=== PATIENT | male | born 1990 | race Caucasian/White ===

== ENCOUNTER 2019-07-24 20:09 | Emergency (ER) | payer OTHER ==
[~2019-07-24] VITALS: Ht 182.9 cm; Wt 83.9 kg
[2019-07-24 20:10] VITALS: BP 141/76
[2019-07-24] MEDS ORDERED: levETIRAcetam 1,000mg/NS100ml 100 ML IVPB ONE (20:15)
--- NOTE | 2019-07-24 20:17 | Emergency Room Report ---
History of Present Illness General Chief Complaint: Seizure Source: Patient Present Illness HPI Disclaimer: Please note that this report is being documented using [employer] technology. This can lead to erroneous entry secondary to incorrect interpretation by the dictating instrument. HPI: 28-year-old male with a history of seizure disorder on Keppra presents for evaluation after generalized tonic-clonic seizure. Per EMS, family called after approximately 2 to 3-minute generalized tonic-clonic seizure without head injury. Patient takes Keppra but reportedly missed medications last night. EMS found him somnolent but arousable to painful stimuli. On arrival here he is awake though confused. He is moving all extremities and denies any complaints. Unable to provide any history of today's events. Vital signs have been stable. No medication given prior to arrival. Reportedly, the patient was drinking alcohol and using THC last night. PMH: Seizure disorder PSH: Unable to obtain from patient Allergies: Unable to obtain from patient Social Hx: Unable to obtain from patient Allergies: Coded Allergies: No Known Allergies (Unverified , 07/24/19) COVID-19 Screening Contact w/high risk pt: No Recent Travel to affected area: No Experienced COVID-19 symptoms?: No COVID-19 Testing performed [facility] [employer]: No Nursing Documentation-PMH Past Medical History: No History, Except For Hx Seizures: Yes Review of Systems All Other Systems: negative except mentioned in HPI Physical Exam Vital Signs Date Time Temp Pulse Resp B/P (MAP) Pulse Ox O2 Delivery O2 Flow Rate FiO2 07/24/19 20:04 97.3 90 18 141/76 (97) 98 Room Air General: Awake and alert, no acute distress HEENT: No external signs of trauma. EOMI. PERRLA. Anicteric sclera. No nystagmus. Cardiovascular: RRR. S1 and S2 normal. No murmur appreciated Resp: Normal work of breathing. No cough, wheezing or crackles appreciated Abdomen: Abdomen is soft, nondistended. Nontender Skin: Intact. No abrasions, laceration or rash over the exposed skin MSK: Normal tone and bulk. Moving all extremities. No obvious deformity. Neuro: Awake, answering questions appropriately. Amnestic to today's events but otherwise mentating appropriately Medical Decision Making Diagnostic Impression: Primary Impression: Seizure ER Course 28-year-old male with history of seizure disorder presents after generalized tonic-clonic seizure at home. Patient is awake though confused. Appears to be improving according to EMS report. Will obtain broad labs, give 1 g of Keppra as a loading dose as he reportedly missed his medications last night. Also send tox screen given the report of recent alcohol use. Reevaluation Time: 22:34 Last Vital Signs Date Time Temp Pulse Resp B/P (MAP) Pulse Ox O2 Delivery O2 Flow Rate FiO2 07/24/19 20:04 97.3 90 18 141/76 (97) 98 Room Air Reevaluation Impression Patient is now awake alert and conversant. He states that he did miss his thousand milligrams of Keppra last night but took his morning 500 today. He has not had a seizure since 2011. He follows with a neurologist and will contact them tomorrow. He was loaded with Keppra. Labs are unremarkable. He would like to be discharged home with follow-up on an outpatient basis. We discussed that he should not drive or operate any heavy machinery as this is the first seizure he said since 2011 and may require changes in his medications per his neurology team. He agrees with this treatment plan will be discharged home. His family is coming to pick him up. Disposition: HOME, SELF-CARE Condition: Stable Lopez Ly MD July 24, 2019 20:17
[2019-07-24 20:43] LABS: BASOPHILS % (AUTO) 2.2 % (0.0-2.0); EOSINOPHILS % (AUTO) 2.7 % (0.0-3.0); HEMATOCRIT 49.3 % (42.0-52.0); HEMOGLOBIN 15.5 G/DL (14.2-18.0); LYMPHOCYTES % (AUTO) 40.2 % (20.0-45.0); MEAN CORPUSCULAR VOLUME 97 FL (80-99); MONOCYTES % (AUTO) 8.3 % (1.0-10.0); NEUTROPHILS % (AUTO) 46.7 % (45.0-75.0); PLATELET COUNT 195 K/UL (150-450); RED BLOOD COUNT 5.11 M/UL (4.70-6.10); RED CELL DISTRIBUTION WIDTH 13.1 % (11.6-14.8); WHITE BLOOD COUNT 9.3 K/UL (4.8-10.8)
[2019-07-24 20:53] LABS: ANION GAP 16 mmol/L (5-15); BLOOD UREA NITROGEN 15 mg/dL (7-18); CALCIUM 9.4 MG/DL (8.5-10.1); CARBON DIOXIDE 25 MMOL/L (21-32); CHLORIDE 102 MMOL/L (98-107); CREATININE 1.3 MG/DL (0.55-1.30); POTASSIUM 3.3 MMOL/L (3.5-5.1); SODIUM 143 MMOL/L (136-145)
[2019-07-24 21:00] VITALS: BP 139/79
[2019-07-24 22:45] LABS: APPEARANCE,URINE CLEAR; BILIRUBIN, URINE NEGATIVE (NEGATIVE); COLOR,URINE PALE YELLOW; GLUCOSE, URINE (UA) NEGATIVE (NEGATIVE); KETONES,URINE 1+ (NEGATIVE); LEUKOCYTE ESTERASE ,URINE NEGATIVE (NEGATIVE); NITRITE,URINE NEGATIVE (NEGATIVE); PH,URINE 7 (4.5-8.0); PROTEIN,URINE 2+ (NEGATIVE); UROBILINOGEN,URINE NORMAL MG/DL (0.0-1.0)
[2019-07-24] MEDS ORDERED: KEPPRA1000 MG ORAL (23:02)
[2019-07-24] MEDS ORDERED: ONDANSETRON ODT4 MG BC (23:02)
[2019-07-24 23:05] VITALS: BP 139/79
== END 2019-07-24 23:05 | disposition home or self-care (01) ==
LOC: EDBD 20:09 → EMR 20:15
DX: G40.409 Other generalized epilepsy and epileptic syndromes, not intractable, without status epilepticus (principal); Z79.899 Other long term (current) drug therapy
CPT/HCPCS: 36415; 80048; 80307; 81003; 85025; 96374; 96375; 99284; G0480; J1953; J2405